=== PATIENT | female | born 1990 | race Caucasian/White ===

== ENCOUNTER 2023-05-24 08:03 | Outpatient (CLI) | payer OTHER, SELFPAY ==
--- NOTE | ~2023-05-24 | US_ITS ---
EXAMINATION: US transvaginal DATE: 05/24/2023 08:29 INDICATION: Menorrhagia TECHNIQUE: Multiple endovaginal sonographic images of the pelvis were obtained. COMPARISON: None. FINDINGS: The uterus measures 9.5 x 4.5 x 5.6 cm. There is a 6 mm hypoechoic area in the myometrium o f the posterior uterine fundus of unclear significance, possibly small fibroids or adenomyosis. The e ndometrial complex measures 13 mm. Small cysts in the cervix likely reflect nabothian cysts. The righ t ovary measures 3.6 x 3.0 x 1.9 cm. The left ovary measures 2.7 x 1.7 x 1.2 cm. There is normal vasc ular flow in the ovaries. There is no free fluid in the pelvis. IMPRESSION: 1. No sonographic correlate for the patient's symptoms. Reviewed, dictated and finalized at location []
== END 2023-05-24 08:04 ==
PROVIDERS: PCP Advanced Practice Midwife; Visit Provider Advanced Practice Midwife
DX: N92.0 Excessive and frequent menstruation with regular cycle (principal)
CPT/HCPCS: 76830

== ENCOUNTER 2023-06-14 03:14 | Day surgery (SDC) | payer OTHER, SELFPAY ==
[2023-06-08 10:12] VITALS: BMI 35.4
--- NOTE | 2023-06-08 10:16 | PC.NURSE ---
Report to the Outpatient Waiting Room, entrance under the green pavilion located off [facility], at time 0800 on date 06/14/23. Planned Procedure Time: 1000. Time changes happen often and if your time is changed the preop area will call you the afternoon before. - You and your visitor will be asked to self-screen and do not enter if you have any COVID symptoms. - A mask is optional within the hospital at this time. Patients may have clear liquids (water, carbonated beverages, clear teas, apple juice) until 3 hours prior to surgery with a maximum of 20 ounces. - No food from midnight until time of surgery Take the following medications with a SIP of water the morning of surgery: LEVOTHYROXINE DO NOT STOP ANY OF YOUR OTHER PRESCRIPTION MEDICATIONS PRIOR TO SURGERY ?EXCEPT THE FOLLOWING Medications to discontinue per physician: VITAMINS/SUPPLEMENTS Date to take last dose: 06/10/23 Please no make-up, nail ukrainian, hairspray, perfume, deodorant, or body powder the day of surgery. No jewelry (including any body piercings) or valuables the day of surgery, leave them at home. Please take a shower or bath the night before, or the morning of, surgery with an antibacterial soap. Wear comfortable, loose fitting clothing. - Jewelry must be removed prior to entering the operating room. Rings and piercings that are not removed may be cut off. - The hospital will not accept responsibility for valuables. - Please leave all valuables, including medications, at home the day of surgery. If you are going home after surgery, a licensed school bus driver must drive you home. - NO public transportation without another adult if you receive anesthesia. - We recommend that an adult stay with you for 24 hours following discharge. - We also recommend that you do not drive, make important decision, drink alcoholic beverages, or take any drugs that were not prescribed by your health care provider for at least 24 hours after your discharge time. Follow any additional instructions given to you from your surgeon. If you or anyone in your household have experienced Covid symptoms in the past week, please notify your surgeon or the nurse liaison at the phone number below for possible testing. Telephone instructions given to PT - ARNOLD DONOHUE and asked if any additional questions and then verbalized understanding. Patient advised to call surgeon office or pre surgery nurse liaison [phone] if any additional questions.
[2023-06-14 08:08] VITALS: BMI 37.3
--- NOTE | 2023-06-14 08:23 | WPDHPUPDATE1 ---
History and Physical Update Update Date/Time: 06/14/23 08:23 History and Physical has been reviewed, including an updated exam of the patient. There are NO changes in the patient's condition. Risks, benefits, and alternatives have been discussed and questions answered. Patient agrees to proceed with procedure.
--- NOTE | 2023-06-14 08:24 | PM.HPGS ---
History of Present Illness History of Present Illness Consent: Risks, benefits, and alternatives have been discussed and questions answered. Patient agrees to proceed with procedure. Chief complaint: menorrhagia with anemia Narrative: Mara Ring is a 33 year old female with irregular and heavy cycles. The patient bleeds through a super tampon approximately 6 times per day and 3 at night. Patient hemoglobin is 9.8. Pelvic ultrasound showed a 6mm hypoechoic area in the posterior fundus suspicious for either a small fibroid or adenomyosis and the endometrium was thickened at 13mm. it was recommended to undergo D&C hysteroscopy for further evaluation. Risks of infection, bleeding, perforation, and possible pathology are reviewed. Patient voices understanding and agrees to proceed. Review of Systems Review of Systems: not repeated day of surgery; patient states no changes in status PMFSH Past Medical History Medical History (Updated 06/14/23 @ 08:26 by Marti Harper MD) Hypothyroid Surgical History Surgical History (Updated 06/14/23 @ 08:26 by Marti Harper MD) History of tonsillectomy Social History Social History Smoking status: Never smoker Alcohol intake: current Drinks per week: 4 Substance use: never Substance use type: does not use Living arrangements: alone Spiritual care concerns: No Meds Home Medications and Allergies Home Medications Medication Instructions Recorded Confirmed Type cetirizine 10 mg tablet 10 mg PO DAILY 06/08/23 06/08/23 History ferrous sulfate 325 mg (65 mg 325 mg PO DAILY 06/08/23 06/08/23 History iron) tablet (Iron (ferrous sulfate)) levothyroxine 50 mcg tablet 50 mcg PO DAILY 06/08/23 06/08/23 History Allergies Allergy/AdvReac Type Severity Reaction Status Date / Time No Known Allergies Allergy Verified 06/08/23 10:11 Exam Const: General: healthy appearing and alert Orientation/consciousness: patient oriented x3 Resp: Effort & Inspection: normal respiratory effort Auscultation: clear to auscultation bilaterally Cardio: Rate: regular rate Rhythm: regular rhythm GI: GI Palp: Yes Soft to palpation, No Tenderness to palpation present (GI) and No Palpable mass present : External Female Exam: normal external appearance Speculum Exam - Vagina: normal appearance of the vagina and normal vaginal discharge Speculum Exam - Cervix: normal appearance of the cervix Bimanual exam- vagina & uterus: uterine size normal and consistency normal Bimanual Exam- Adnexa, other: normal adnexae and No adnexal tenderness Neuro: General: patient oriented x3 Assessment and Plan Assessment and plan (1) Menorrhagia: Code(s): N92.0 - Excessive and frequent menstruation with regular cycle Status: Acute Assessment and Plan: with anemia plan is to proceed with D&C hysteroscopy
[2023-06-14 08:36] VITALS: BP 134/90; PULSE 92; RESP 16; TEMP 37.2; O2SAT 98
[2023-06-14] MEDS: ACETAMINOPHEN 500 MG TABLET 1000 MG PO (08:52)
[2023-06-14] MEDS: LACTATED RINGERS 1,000 ML 30 ML IV CONT (09:15)
--- NOTE | 2023-06-14 09:35 | P.PNAN_ITS ---
Anes - Initial Pre Proc Eval Procedure: Operation Date: 06/14/23 10:00 Proposed Procedures p Hysteroscopy Dilation and Curettage - Marti Harper MD Date/Time: 06/14/23 09:35 Surgeon: Marti Harper MD Pre Op Diagnosis: menorrhagia with anemia Patient Data Age: 33 Gender: F Height: 1.75 m Weight: 114.5 kg Last Vital Signs Temp 37.2 C 06/14/23 08:36 Pulse 92 06/14/23 08:36 Resp 16 06/14/23 08:36 BP 134/90 06/14/23 08:36 Pulse Ox 98 06/14/23 08:36 O2 Del Method Room Air 06/14/23 08:36 Allergies Allergy/AdvReac Type Severity Reaction Status Date / Time No Known Allergies Allergy Verified 06/14/23 08:31 Home Medications Medication Instructions Recorded Confirmed Type cetirizine 10 mg tablet 10 mg PO DAILY 06/08/23 06/14/23 History ferrous sulfate 325 mg (65 mg 325 mg PO DAILY 06/08/23 06/08/23 History iron) tablet (Iron (ferrous sulfate)) levothyroxine 50 mcg tablet 50 mcg PO DAILY 06/08/23 06/08/23 History Patient hx anesthesia problems: none Family hx anesthesia problems: none Results Review: All pre-operative results and documents have been reviewed as part of the pre- operative evaluation. [facility] Past Medical History Medical History Hypothyroid Surgical History Surgical History History of tonsillectomy Social History Social History Smoking status: Never smoker Alcohol intake: current Drinks per week: 4 Substance use: never Substance use type: does not use Living arrangements: alone Spiritual care concerns: No Anes - Eval Final PreProcedure Day of Procedure 06/14/23 09:35 Patient weight: obese Heart: regular rate and rhythm Lungs: clear to auscultation Airway: Mallampati scale class II Neurological: alert and oriented Last oral intake: >/= 8 hours ASA classification: II Emergent: no Anesthetic plan: proceed Anesthesia type and monitoring: general GIVS and standard monitoring Results Review: All pre-operative results and documents have been reviewed as part of the pre- operative evaluation. Informed Consent: The patient's anesthetic plan and its attendant risks and benefits were discussed with the patient/family/POA. Questions were solicited and answers provided to the satisfaction of the patient/family/POA.
--- NOTE | 2023-06-14 10:31 | P.OP_ITS ---
Procedure Note - Detailed Date of Procedure 06/14/23 Pre-op Diagnosis menorrhagia with anemia Post-op Diagnosis Same Procedure Performed D&C hysteroscopy Surgeon Marti Harper MD Anesthesia MAC Findings uterus sounds to 9cm and appears grossly secretory although the tissue was very thick and difficult to determine if any polyps are present Description of Procedure The patient is taken to the operating room and placed under anesthesia in the dorsal lithotomy position. She was prepped and draped in usual sterile fashion. Slinger speculum was placed in the vagina and the cervix grasped on the anterior lip with a tenaculum. The uterus is sounded to 9cm. The diagnostic hysteroscope was placed and with the very thickened endometrium the Aveeta resection device is placed. The endometrium is resected with the device under direct visualization. The hysteroscope and device were then removed and the sharp curette used to curette the endometrium until a good uterine cry is noted in all areas. All instruments are removed. Sponge, needle, and instrument counts are correct per the OR staff. Patient was awakened from anesthesia and taken to recovery in stable condition. Estimated Blood Loss 5 Drains No Packing No Pathology Yes ( Endometrial shavings and curettings) Complications No immediate complications Condition Stable Disposition PACU
[2023-06-14 10:38] VITALS: BP 118/81; PULSE 84; RESP 16; O2SAT 88
[2023-06-14 11:05] VITALS: BP 129/92; PULSE 68; RESP 16; O2SAT 94
[2023-06-14] MEDS: oxyCODONE HCL (*CRX) 5 MG TAB IR PO (11:12)
[2023-06-14 11:35] VITALS: BP 121/81; PULSE 63; RESP 16; O2SAT 97
== END 2023-06-14 11:48 | disposition home or self-care (01) ==
PROVIDERS: Visit Provider Obstetrics & Gynecology Gynecology
PROC: 0U5B8ZZ Destruction of Endometrium, Via Natural or Artificial Opening Endoscopic (ICD-10-PCS; CPT 58563; principal; 2023-06-14 10:00)
DX: N92.0 Excessive and frequent menstruation with regular cycle (principal); D64.9 Anemia, unspecified; E03.9 Hypothyroidism, unspecified
CPT/HCPCS: 58558; 88305; A9270; J2250; J2405; J2704; J3010; J7120